=== PATIENT | male | born 1955 ===

== ENCOUNTER 2021-08-04 10:15 | Inpatient (IN) | payer OTHER ==
[~2021-08-04] VITALS: Ht 152.4 cm; Wt 90.7 kg
[2021-08-04] MEDS ORDERED: LOPRES PO (12:29)
[2021-08-10] MEDS ORDERED: LOSARTAN POTASS50 MG (13:07)
[2021-08-10] MEDS ORDERED: MONTELUKAST SOD10 MG (13:07)
[2021-08-10] MEDS ORDERED: FLONASE16 GM (13:07)
[2021-08-10] MEDS ORDERED: FOLIC ACID1 MG (13:07)
[2021-08-10] MEDS ORDERED: ONDANSETRON4 MG/2 M5 (13:08)
[2021-08-10] MEDS ORDERED: FAMOTIDINE20 MG/2 M1 (13:08)
[2021-08-10] MEDS ORDERED: FENOFIBRATE145 MG (13:08)
[2021-08-10] MEDS ORDERED: [UNRECOGNIZED DRUG - OTHER] (13:08)
[2021-08-10] MEDS ORDERED: DEXAMETHASO4 MG/1 M1 (13:08)
[2021-08-17] MEDS ORDERED: ZINC SULFATE50 M1 PO (17:30)
[2021-08-17] MEDS ORDERED: GABAPENTIN300 MG PO (17:30)
[2021-08-17] MEDS ORDERED: LOPRESSOR25 MG PO (17:30)
[2021-08-17] MEDS ORDERED: PANTOPRAZOLE SO40 MG PO (17:31)
[2021-08-17] MEDS ORDERED: INTESTINEX680 M1 PO (17:31)
[2021-08-17] MEDS ORDERED: VITAMIN C500 M1 PO (17:31)
[2021-08-17] MEDS ORDERED: MELATONIN5 M2 PO (17:32)
[2021-08-17] MEDS ORDERED: BACTRIM DS TAB1 EACH PO (17:36)
[2021-08-17] MEDS ORDERED: FUSION PLUS CA1 EACH PO (17:37)
[2021-08-17] MEDS ORDERED: ABANEU-SL TABL1 EACH SL (17:39)
== END 2021-08-17 20:46 | disposition home or self-care (01) | DRG 329 ==
LOC: SURG 08-10 05:56 → O/R 08-10 05:56 → SURH 08-10 07:00 → SURG 08-10 14:45 → MEDJ 08-12 10:11
PROVIDERS: ADMIT Surgery; ATTEND Surgery
PROC: 0DBP4ZZ Excision of Rectum, Percutaneous Endoscopic Approach (ICD-10-PCS; 2021-08-10)
PROC: 02HV33Z Insertion of Infusion Device into Superior Vena Cava, Percutaneous Approach (ICD-10-PCS; 2021-08-10)
PROC: 0DTN4ZZ Resection of Sigmoid Colon, Percutaneous Endoscopic Approach (ICD-10-PCS; principal; 2021-08-10 07:00)
PROC: BW24ZZZ Computerized Tomography (CT Scan) of Chest and Abdomen (ICD-10-PCS; 2021-08-13)
PROC: BT1BZZZ Fluoroscopy of Bladder and Urethra (ICD-10-PCS; 2021-08-17)
DX: K57.20 Diverticulitis of large intestine with perforation and abscess without bleeding (principal); U07.1 COVID-19; N32.1 Vesicointestinal fistula; J98.11 Atelectasis; N39.0 Urinary tract infection, site not specified; R10.32 Left lower quadrant pain; K59.09 Other constipation; I11.9 Hypertensive heart disease without heart failure; R09.02 Hypoxemia; B96.29 Other Escherichia coli [E. coli] as the cause of diseases classified elsewhere

== ENCOUNTER 2021-08-25 09:04 | Outpatient (CLI) | payer OTHER ==
[~2021-08-25 09:04] MED LIST: ABANEU-SL TABL1 EACH SL; BACTRIM DS TAB1 EACH PO; DEXAMETHASO4 MG/1 M1; FAMOTIDINE20 MG/2 M1; FENOFIBRATE145 MG; FLONASE16 GM; FOLIC ACID1 MG; FUSION PLUS CA1 EACH PO; GABAPENTIN300 MG PO; INTESTINEX680 M1 PO; LOPRES PO; LOPRESSOR25 MG PO; LOSARTAN POTASS50 MG; MELATONIN5 M2 PO; MONTELUKAST SOD10 MG; ONDANSETRON4 MG/2 M5; PANTOPRAZOLE SO40 MG PO; VITAMIN C500 M1 PO; ZINC SULFATE50 M1 PO; [UNRECOGNIZED DRUG - OTHER]
== END 2021-08-25 09:09 | disposition home or self-care (01) ==
LOC: RX STUDY 09:04
DX: N32.1 Vesicointestinal fistula (principal)